=== PATIENT | male | born 1980 | race African-American/Black ===

== ENCOUNTER 2017-10-03 07:51 | Day surgery (SDC) | payer MEDICAID ==
[2017-10-03] MEDS ORDERED: SOD CHLORIDE 0.9% 1,000 ML IV (08:30)
[2017-10-03] MEDS ORDERED: CEFAZOLIN 2 GM/50 ML (PMX) 50 ML IVPB (08:30)
[2017-10-03] MEDS ORDERED: MEPERIDINE 25 MG INJ IV (10:00)
[2017-10-03] MEDS ORDERED: FENTAnyl 50 MCG/ML VIAL IV ×3 (10:00)
[2017-10-03] MEDS ORDERED: HYDROmorphONE (0.2 MG/ML) 10ML SYG IV ×3 (10:00)
[2017-10-03] MEDS ORDERED: LABETALOL HCL 20MG INJ IV (10:00)
[2017-10-03] MEDS ORDERED: EPHEDrine SULFATE 50 MG/5 ML SYG IV (10:00)
[2017-10-03] MEDS ORDERED: DIPHENHYDRAMINE 50 MG INJ IV (10:00)
[2017-10-03] MEDS ORDERED: ONDANSETRON 4 MG INJ IV (10:00)
[2017-10-03] MEDS ORDERED: hydrALAzine 20 MG INJ IV (10:00)
[2017-10-03] MEDS ORDERED: METOCLOPRAMIDE 10 MG INJ IV (10:00)
[2017-10-03] MEDS ORDERED: OXYCODONE/ACETAMINOPHEN (5/325) TAB PO ×2 (10:00)
[2017-10-03] MEDS ORDERED: ROCURONIUM 50 MG INJ (10:15)
[2017-10-03] MEDS ORDERED: PROPOFOL 40 ML (10:15)
[2017-10-03] MEDS ORDERED: FENTAnyl 50 MCG/ML VIAL ×2 (10:16)
[2017-10-03] MEDS ORDERED: MIDAZOLAM 1 MG/ML 2 ML INJ (10:16)
[2017-10-03] MEDS ORDERED: METOCLOPRAMIDE 10 MG INJ (10:26)
[2017-10-03] MEDS ORDERED: CEFAZOLIN 1 GM INJ (10:26)
[2017-10-03] MEDS ORDERED: KETOROLAC 30 MG INJ (10:26)
[2017-10-03] MEDS ORDERED: SUGAMMADEX SODIUM 200 MG/2 ML VIAL IV (10:26)
[2017-10-03] MEDS ORDERED: DEXAMETHASONE 4 MG/ML 1 ML INJ (10:26)
[2017-10-03] MEDS ORDERED: ONDANSETRON 4 MG INJ (10:26)
[2017-10-03] MEDS: BUPIVACAINE 0.25% (MPF) 30 ML INJ (10:36)
[2017-10-03] MEDS ORDERED: IBUPROFEN 800 MG TAB PO (11:00)
== END 2017-10-03 12:32 | disposition home or self-care (01) ==
LOC: SDS 07:51
DX: D17.1 Benign lipomatous neoplasm of skin and subcutaneous tissue of trunk (principal)
CPT/HCPCS: 14000; 88307